=== PATIENT | female | born 1990 | race African-American/Black ===

== ENCOUNTER 2018-10-25 15:17 | Inpatient (IN) ==
[2018-10-25] MEDS ORDERED: MEPERIDINE 25 MG/1 ML VIAL IV PRN (15:43)
[2018-10-25] MEDS ORDERED: BUTORPHANOL 2 MG/ML VIAL IV PRN (15:43)
[2018-10-25] MEDS ORDERED: LACTATED RINGERS 250 ML IV ONE (15:43)
[2018-10-25] MEDS ORDERED: ONDANSETRON 4 MG/2 ML VIAL IV PRN (15:43)
[2018-10-25] MEDS ORDERED: DINOPROSTONE VAG GEL 10 MG SYRINGE VAG ONE (15:44)
[2018-10-25 16:07] LABS: Basophils % 0.3 % (0.0-0.8); Eosinophils # 0.3 10*3/uL (0.0-0.87); Eosinophils % 2.2 % (0.00-10.9); Hemoglobin 10.9 GM/DL (12.0-16.0); Immature Granulocytes % 1.4 %; Immature Granulocytes Absolute 0.19 #; Lymphocytes % 14.9 % (21.3-54.2); Mean Corpuscular HGB Conc 32.1 GM/DL (32-36); Mean Corpuscular Volume 86.7 FL (87-102); Mean Platelet Volume 9.9 FL (9.6-12.0); Monocytes % 11.5 % (1.7-12.7); Neutrophils % 69.7 % (38.7-73.9); Platelet Count 214 T/CUMM (130-400); Red Blood Count 3.92 MC/CUMM (3.8-5.5); Red Cell Distribution Width 14.7 % (9.3-17.3); White Blood Count 13.5 T/CUMM (4-12)
[2018-10-25 16:32] LABS: Alanine Aminotransferase 24 U/L (13-56); Albumin 2.9 G/DL (3.4-5.0); Alkaline Phosphatase 133 U/L (45-117); Aspartate Amino Transferase 20 U/L (0-37); Bilirubin,Total < 0.39 MG/DL (0.2-1.0); Blood Urea Nitrogen 7 MG/DL (7-18); Glucose 74 MG/DL (74-106); Osmolality,Calculated 269.8 MOS/KG (273-304); Total Protein 7.3 G/DL (6.4-8.3); Uric Acid 4.5 MG/DL (2.6-6.0)
[2018-10-26] MEDS ORDERED: OXYTOCIN/LR 20 UNIT/1,000 ML BAG IV SCH
[2018-10-26] MEDS: LACTATED RINGERS 1,000 ML IV SCH ×2 (00:12→12:32)
[2018-10-26] MEDS ORDERED: diphenhydrAMINE 50 MG/1 ML VIAL IV PRN (12:20)
[2018-10-26] MEDS ORDERED: NALOXONE 0.4 MG/ML VIAL IV PRN (12:20)
[2018-10-26] MEDS ORDERED: FAMOTIDINE 20 MG/2 ML VIAL IV ONE (12:20)
[2018-10-26] MEDS ORDERED: ePHEDrine 50 MG/ML AMP IV PRN (12:20)
[2018-10-26] MEDS ORDERED: CITRIC ACID/SODIUM CITRATE 30 ML UDCUP PO ONE (12:20)
[2018-10-26] MEDS ORDERED: hydrOXYzine HCL 25 MG/1 ML VIAL IM PRN (12:20)
[2018-10-26] MEDS ORDERED: PROMETHAZINE 25 MG/1 ML VIAL IM PRN (12:20)
[2018-10-26] MEDS ORDERED: fentaNYL 2 MCG/ROPIV 0.2% EPID 100 ML EPIDURAL SCH (12:30)
[2018-10-26] MEDS ORDERED: OXYTOCIN/LR 20 UNIT/1,000 ML BAG IV ONE (13:07)
[2018-10-26] MEDS ORDERED: miSOPROStol 200 MCG TABLET ONE (13:07)
[2018-10-26] MEDS ORDERED: TRANEXAMIC ACID 1,000 MG/10 ML VIAL ONE (13:07)
[2018-10-26] MEDS ORDERED: METHYLERGONOVINE 0.2 MG/1 ML AMP ONE (13:08)
[2018-10-26] MEDS ORDERED: CARBOPROST TROMETHAMINE 250 MCG/ML AMP IM ONE (13:08)
[2018-10-26] MEDS ORDERED: ACETAMINOPHEN/CODEINE 300-30 MG TABLET PO PRN (14:54)
[2018-10-26] MEDS ORDERED: WITCH HAZEL PADS 100/JAR TOP PRN (19:45)
[2018-10-26] MEDS ORDERED: DIPH/TET/ACEL PERT BOOSTER VACCINE 0.5 ML VIAL IM ONE (19:45)
[2018-10-26] MEDS ORDERED: MEASLES/MUMPS/RUBELLA VACCINE 0.5 ML VIAL SUBCUT ONE (19:45)
[2018-10-26] MEDS ORDERED: HYDROCORTISONE 2.5% RECTAL CREAM 30 GM TUBE TOP PRN (19:45)
[2018-10-26] MEDS ORDERED: IBUPROFEN 800 MG TABLET PO PRN (19:45)
[2018-10-26] MEDS ORDERED: oxyCODONE/ACETAMINOPHEN 5-325 MG TABLET PO PRN ×2 (19:45)
[2018-10-26] MEDS ORDERED: RHO(D) IMMUNE GLOBULIN 300 MCG SYRINGE IM ONE (19:45)
[2018-10-26] MEDS ORDERED: BISACODYL 10 MG SUPP RECTAL PRN (19:45)
[2018-10-26] MEDS ORDERED: ACETAMINOPHEN 325 MG TABLET PO PRN (19:45)
[2018-10-26] MEDS ORDERED: LANOLIN 50% CREAM 0.3 OZ TUBE TOP PRN (19:45)
[2018-10-26] MEDS ORDERED: BENZOCAINE 20%/MENTHOL 0.5% SPRAY 56 GM CAN TOP PRN (19:45)
[2018-10-26] MEDS: DOCUSATE SODIUM 100 MG CAPSULE PO SCH (21:14)
[2018-10-27 04:51] LABS: Basophils % 0.3 % (0.0-0.8); Eosinophils # 0.2 10*3/uL (0.0-0.87); Eosinophils % 1.2 % (0.00-10.9); Hematocrit 31.7 VOL% (35.7-47.0); Immature Granulocytes % 0.9 %; Immature Granulocytes Absolute 0.13 #; Lymphocytes # 2.4 10*3/uL (1.4-4.0); Lymphocytes % 15.5 % (21.3-54.2); Mean Corpuscular HGB Conc 31.5 GM/DL (32-36); Mean Corpuscular Volume 87.8 FL (87-102); Mean Platelet Volume 10.7 FL (9.6-12.0); Monocytes % 11.2 % (1.7-12.7); Neutrophils % 70.9 % (38.7-73.9); Platelet Count 196 T/CUMM (130-400); Red Blood Count 3.61 MC/CUMM (3.8-5.5); Red Cell Distribution Width 14.9 % (9.3-17.3); White Blood Count 15.3 T/CUMM (4-12)
[2018-10-27] MEDS: DOCUSATE SODIUM 100 MG CAPSULE PO SCH ×2 (09:21→21:03)
[2018-10-28 07:16] VITALS: BP 120/63
[2018-10-28] MEDS: DOCUSATE SODIUM 100 MG CAPSULE PO SCH (09:33)
== END 2018-10-28 12:20 | disposition home or self-care (01) | DRG 560 ==
LOC: N.LDOUT 15:17 → N.LD 15:18 → N.OB 10-26 19:45
PROVIDERS: ADMIT Obstetrics & Gynecology; ATTEND Obstetrics & Gynecology

== ENCOUNTER 2022-02-20 05:30 | Inpatient (IN) ==
[2022-02-20] MEDS ORDERED: METHYLERGONOVINE 0.2 MG/1 ML AMP IM PRN (05:39)
[2022-02-20] MEDS ORDERED: OXYTOCIN/LR 20 UNIT/1,000 ML BAG IV ONE ×3 (05:39→08:32)
[2022-02-20] MEDS ORDERED: TRANEXAMIC ACID 1,000 MG in SODIUM CHLORIDE 0.9% 100 ML IV PRN (05:39)
[2022-02-20] MEDS ORDERED: CARBOPROST TROMETHAMINE 250 MCG/ML AMP IM PRN (05:39)
[2022-02-20] MEDS ORDERED: miSOPROStoL 200 MCG TABLET RECTAL PRN (05:39)
[2022-02-20 06:08] LABS: Basophils % 0.3 % (0.0-0.8); Eosinophils # 0.2 10*3/uL (0.0-0.87); Eosinophils % 2.5 % (0.00-10.9); Hematocrit 33.7 VOL% (35.7-47.0); Hemoglobin 11.2 GM/DL (12.0-16.0); Immature Granulocytes % 0.8 %; Immature Granulocytes Absolute 0.07 #; Lymphocytes # 1.8 10*3/uL (1.4-4.0); Lymphocytes % 20.8 % (21.3-54.2); Mean Corpuscular HGB Conc 33.2 GM/DL (32-36); Mean Corpuscular Volume 85.5 FL (87-102); Mean Platelet Volume 10.5 FL (9.6-12.0); Monocytes % 11.6 % (1.7-12.7); Platelet Count 221 T/CUMM (130-400); Red Blood Count 3.94 MC/CUMM (3.8-5.5); Red Cell Distribution Width 15.9 % (9.3-17.3); White Blood Count 8.8 T/CUMM (4-12)
[2022-02-20 06:29] LABS: Alanine Aminotransferase 15 U/L (13-56); Albumin 2.8 G/DL (3.4-5.0); Alkaline Phosphatase 140 U/L (45-117); Aspartate Amino Transferase 16 U/L (0-37); Bilirubin,Total < 0.39 MG/DL (0.20-1.00); Blood Urea Nitrogen 6 MG/DL (7-18); Calcium 9.6 MG/DL (8.5-10.1); Carbon Dioxide 20 MMOL/L (21-32); Chloride 110 MMOL/L (98-107); Glucose 81 MG/DL (74-106); Osmolality,Calculated 271.7 MOS/KG (273-304); Sodium 138 MMOL/L (136-145); Total Protein 7.1 G/DL (6.4-8.2)
[2022-02-20] MEDS ORDERED: LACTATED RINGERS 1,000 ML IV SCH ×2 (06:30→09:00)
[2022-02-20] MEDS ORDERED: ceFAZolin 2,000 MG/50 ML DUPLEX IV ONE (06:30)
[2022-02-20] MEDS ORDERED: CITRIC ACID/SODIUM CITRATE 30 ML UDCUP PO ONE (06:30)
[2022-02-20] MEDS ORDERED: CLINDAMYCIN INJ 900 MG/50 ML PREMIX IV ONE (06:32)
[2022-02-20] MEDS ORDERED: FAMOTIDINE 20 MG/2 ML VIAL IV ONE (06:37)
[2022-02-20] MEDS ORDERED: miSOPROStoL 200 MCG TABLET ONE (07:04)
[2022-02-20] MEDS ORDERED: CARBOPROST TROMETHAMINE 250 MCG/ML AMP IM ONE (07:05)
[2022-02-20] MEDS ORDERED: METHYLERGONOVINE 0.2 MG/1 ML AMP ONE (07:05)
[2022-02-20] MEDS ORDERED: buprenorphine HCL 0.3 MG/ML VIAL ONE (07:22)
[2022-02-20] MEDS ORDERED: BUPIVACAINE MPF 0.5% 30 ML VIAL ONE (07:51)
[2022-02-20] MEDS ORDERED: ONDANSETRON 4 MG/2 ML VIAL ONE (07:51)
[2022-02-20] MEDS ORDERED: LACTATED RINGERS 1,000 ML IV ONE (07:51)
[2022-02-20] MEDS ORDERED: DEXMEDETOMIDINE 200 MCG/2 ML VIAL ONE (08:00)
[2022-02-20 08:12] LABS: Bilirubin,Urine Negative (Negative); Blood, Urine Trace mg/dL (Negative); Glucose,Urine (UA) Negative (Negative); Ketones,Urine Negative (Negative); Mucus,Urine Occasional /LPF (Occasional); Nitrite,Urine Negative (Negative); Protein,Urine Negative (Negative); RBC,Urine <1 /HPF (0-4); Urine Appearance Clear (Clear); Urine Color Yellow (Yellow); Urine Specific Gravity 1.015 (1.001-1.035); Urine Urobilinogen 0.2 eU/dL (<2.0); Urine pH 6.5 (4.5-8.0)
[2022-02-20 08:20] LABS: Cord Arterial Blood HCO3 22.2 MMOL/L
[2022-02-20 08:22] LABS: Cord Venous Blood HCO3 22.4 MMOL/L; Cord Venous Blood PCO2 40.2 MMHG; Cord Venous Blood PO2 33.6
[2022-02-20] MEDS ORDERED: ONDANSETRON 4 MG/2 ML VIAL IV PRN (08:32)
[2022-02-20] MEDS ORDERED: IBUPROFEN 800 MG TABLET PO PRN (08:32)
[2022-02-20] MEDS ORDERED: ACETAMINOPHEN 325 MG TABLET PO PRN (08:32)
[2022-02-20] MEDS: KETOROLAC 30 MG/1 ML VIAL IV SCH ×3 (09:15→21:14)
[2022-02-20] MEDS ORDERED: RHO(D) IMMUNE GLOBULIN 300 MCG SYRINGE IM ONE (12:00)
[2022-02-20] MEDS ORDERED: ACETAMINOPHEN 500 MG TABLET PO SCH (12:00)
[2022-02-20] MEDS: ACETAMINOPHEN 500 MG TABLET PO SCH ×2 (15:02→21:15)
[2022-02-20] MEDS: DOCUSATE SODIUM 100 MG CAPSULE PO SCH (16:39)
[2022-02-20] MEDS: LACTATED RINGERS 1,000 ML IV SCH (16:39)
[2022-02-20] MEDS: MULTIVITAMIN (PRENATAL) TABLET PO SCH (16:40)
[2022-02-21] MEDS: DOCUSATE SODIUM 100 MG CAPSULE PO SCH ×3 (00:45→20:36)
[2022-02-21] MEDS: ACETAMINOPHEN 500 MG TABLET PO SCH (03:50)
[2022-02-21] MEDS: KETOROLAC 30 MG/1 ML VIAL IV SCH (03:50)
[2022-02-21 06:19] LABS: Basophils % 0.4 % (0.0-0.8); Eosinophils # 0.2 10*3/uL (0.0-0.87); Eosinophils % 1.9 % (0.00-10.9); Hematocrit 29.5 VOL% (35.7-47.0); Hemoglobin 9.6 GM/DL (12.0-16.0); Immature Granulocytes % 0.4 %; Immature Granulocytes Absolute 0.04 #; Lymphocytes # 1.7 10*3/uL (1.4-4.0); Lymphocytes % 18.1 % (21.3-54.2); Mean Corpuscular HGB Conc 32.5 GM/DL (32-36); Mean Corpuscular Volume 88.1 FL (87-102); Mean Platelet Volume 10.6 FL (9.6-12.0); Monocytes # 1.1 10*3/uL (0.11-0.8); Neutrophils % 68.2 % (38.7-73.9); Platelet Count 187 T/CUMM (130-400); Red Blood Count 3.35 MC/CUMM (3.8-5.5); Red Cell Distribution Width 15.9 % (9.3-17.3); White Blood Count 9.6 T/CUMM (4-12)
[2022-02-21] MEDS: MULTIVITAMIN (PRENATAL) TABLET PO SCH (09:35)
[2022-02-21] MEDS: SIMETHICONE CHEW 80 MG TABLET PO PRN (20:35)
[2022-02-21] MEDS: MAGNESIUM HYDROXIDE SUSP 30 ML UDCUP PO PRN (20:36)
[2022-02-22] MEDS: MAGNESIUM HYDROXIDE SUSP 30 ML UDCUP PO PRN (08:26)
[2022-02-22] MEDS: DOCUSATE SODIUM 100 MG CAPSULE PO SCH (08:26)
[2022-02-22] MEDS: SIMETHICONE CHEW 80 MG TABLET PO PRN (08:26)
[2022-02-22] MEDS: MULTIVITAMIN (PRENATAL) TABLET PO SCH (08:26)
[2022-02-22 09:40] VITALS: BP 132/81
== END 2022-02-22 11:10 | disposition home or self-care (01) | DRG 540 ==
LOC: N.LDOUT 05:30 → N.LD 05:32 → N.OB 11:08
PROVIDERS: ADMIT Obstetrics & Gynecology; ATTEND Obstetrics & Gynecology
PROC: LDCSECT (ICD-10-PCS; 2022-02-20 07:30)